=== PATIENT | female | born 1985 | race Caucasian/White ===

== ENCOUNTER 2022-09-03 13:30 | Inpatient (IN) | payer OTHER ==
[~2022-09-03] VITALS: Ht 165 cm; Wt 116.6 kg
[2022-09-03] MEDS ORDERED: MISOPROSTOL 100MCG TABLET VG PRN (14:30)
[2022-09-03] MEDS ORDERED: METHYLERGONOVINE MALEATE 0.2 MG/ML IM PRN (14:30)
[2022-09-03] MEDS ORDERED: CARBOPROST TROMETHAMINE 250 MCG/ML AMPUL IM PRN (14:30)
[2022-09-03] MEDS ORDERED: OXYTOCIN 30 UNITS/500ML NS PMX 500 ML IV SCH ×2 (14:30→22:15)
[2022-09-03] MEDS ORDERED: PHENYLEPHRINE HCL 10 MG/ML 1ML (IV VIAL) IV ONE (14:41)
[2022-09-03] MEDS ORDERED: OXYTOCIN 10 UNITS/ML 1ML ONE (14:41)
[2022-09-03] MEDS ORDERED: CEFAZOLIN SODIUM 1000MG/VIAL ONE ×2 (14:41→21:30)
[2022-09-03] MEDS ORDERED: MORPHINE SULFATE/PF 1MG/ML 10ML AMP ONE (14:41)
[2022-09-03] MEDS ORDERED: ONDANSETRON HCL 4MG/2ML INJ ONE (14:41)
[2022-09-03] MEDS ORDERED: EPHEDRINE SULFATE 50MG/ML VIAL ONE (14:41)
[2022-09-03] MEDS ORDERED: FENTANYL CITRATE/PF 50MCG/ML 2ML VIAL ONE (14:41)
[2022-09-03] MEDS ORDERED: DIPHENHYDRAMINE 50MG/ML VIAL ONE (14:41)
[2022-09-03] MEDS ORDERED: SODIUM CHLORIDE 0.9% 10ML VIAL ONE (14:43)
[2022-09-03] MEDS ORDERED: CITRIC ACID/SODIUM CITRATE SOLN 30ML UDC PO NR (14:45)
[2022-09-03 15:13] LABS: HEMATOCRIT. 38.2 % (36.0-48.0); HEMOGLOBIN. 12.7 g/dL (12.0-16.0); MEAN CORPUSCULAR HEMOGLOBIN 29.3 pg (28.0-32.0); MEAN CORPUSCULAR VOLUME 88.1 fL (81.0-99.0); MEAN PLATELET VOLUME 9.1 fl (7.4-10.4); PLATELET 201 x1000/uL (130-400); RED BLOOD CELL COUNT 4.34 mill/uL (4.2-5.4); RED CELL DISTRIBUTION WIDTH 14.7 % (11.6-14.6)
[2022-09-03 15:14] LABS: CLARITY URINE CLEAR (CLEAR); COLOR URINE YELLOW (YELLOW); KETONES URINE 1+ (NEGATIVE); LEUKOCYTE ESTERASE URINE NEGATIVE (NEGATIVE); NITRITE URINE NEGATIVE (NEGATIVE); OCCULT BLOOD URINE NEGATIVE (NEGATIVE); PROTEIN URINE NEGATIVE (NEGATIVE); SPECIFIC GRAVITY URINE 1.012 (1.005-1.030); UROBILINOGEN URINE 0.2 E.U./dL (0.2-1.0)
[2022-09-03 15:26] LABS: *AMPHETAMINES SCREEN URINE NEGATIVE (NEGATIVE); *BARBITURATES SCREEN URINE NEGATIVE (NEGATIVE); *BENZODIAZEPINES SCREEN URINE NEGATIVE (NEGATIVE); *COCAINE SCREEN URINE NEGATIVE (NEGATIVE); CANNABINOID URINE SCREEN NEGATIVE (NEGATIVE); METHADONE URINE SCREEN NEGATIVE (NEGATIVE); OPIATES URINE SCREEN NEGATIVE (NEGATIVE); PHENCYCLIDINE URINE SCREEN NEGATIVE (NEGATIVE)
[2022-09-03 15:54] LABS: INR 0.9; PARTIAL THROMBOPLASTIN TIME 28.2 sec (23.4-31.0); PROTHROMBIN TIME 9.7 sec (9.6-11.0)
[2022-09-03 15:56] LABS: PLATELET ESTIMATE NORMAL
[2022-09-03] MEDS: LACTATED RINGERS 1,000 ML IV SCH ×3 (17:27→20:31)
[2022-09-03] MEDS ORDERED: LACTATED RINGERS 1,000 ML IV SCH (20:45)
[2022-09-03] MEDS ORDERED: METOCLOPRAMIDE HCL 10MG/2ML VIAL ONE (21:15)
[2022-09-03] MEDS ORDERED: KETOROLAC 60MG/2ML VIAL IM ONE (21:29)
[2022-09-03] MEDS ORDERED: LANOLIN OINT 7GM TUBE TOP PRN (22:15)
[2022-09-03] MEDS ORDERED: BISACODYL 10MG SUPP PR PRN (22:15)
[2022-09-03] MEDS ORDERED: ONDANSETRON HCL 4MG/2ML INJ IV PRN (22:15)
[2022-09-03] MEDS ORDERED: ACETAMINOPHEN WITH CODEINE 300/30MG TABLET PO PRN (22:15)
[2022-09-03] MEDS ORDERED: DIPHENHYDRAMINE 50MG/ML VIAL IV PRN (22:15)
[2022-09-03] MEDS ORDERED: RHO(D) IMMUNE GLOBULIN 300 MCG/SYR IM PRN (22:15)
[2022-09-03] MEDS ORDERED: BUTORPHANOL TARTRATE 2 MG/ML VIAL IV PRN (22:15)
[2022-09-03] MEDS ORDERED: DIPHENHYDRAMINE 25MG CAPSULE PO PRN (22:15)
[2022-09-03] MEDS ORDERED: KETOROLAC 30MG/ML VIAL IV SCH (22:15)
[2022-09-03] MEDS ORDERED: IBUPROFEN 400MG TABLET PO PRN (22:15)
[2022-09-03] MEDS ORDERED: NALOXONE HCL 0.4 MG/ML 1ML VIAL IV PRN (22:15)
[2022-09-03] MEDS ORDERED: HEMORRHOIDAL SUPP PR PRN (22:15)
[2022-09-03 23:45] VITALS: BP 94/54
[2022-09-04 00:15] VITALS: BP 110/60
[2022-09-04 00:45] VITALS: BP 115/65
[2022-09-04] MEDS: LACTATED RINGERS 1,000 ML IV SCH (02:12)
[2022-09-04 06:00] VITALS: BP 104/64
[2022-09-04 06:41] LABS: BASOPHILS % 0.4 % (0.0-2.0); EOSINOPHILS % 0.9 % (0.0-5.0); HEMATOCRIT. 32.8 % (36.0-48.0); HEMOGLOBIN. 10.9 g/dL (12.0-16.0); LYMPHOCYTES % 15.2 % (20.0-50.0); MEAN CORPUSCULAR HEMOGLOBIN 29.5 pg (28.0-32.0); MEAN CORPUSCULAR VOLUME 88.7 fL (81.0-99.0); MEAN PLATELET VOLUME 8.5 fl (7.4-10.4); MONOCYTES % 5.8 % (2.0-8.0); NEUTROPHILS % 77.7 % (40.0-76.0); PLATELET 172 x1000/uL (130-400)
[2022-09-04 10:00] VITALS: BP 106/67
[2022-09-04] MEDS: PRENATAL VIT/FE FUMARATE/FA TABLET PO SCH (10:01)
[2022-09-04] MEDS: IBUPROFEN 800MG TABLET PO PRN (10:01)
[2022-09-04] MEDS: FERROUS SULFATE 325MG TABLET PO SCH ×2 (10:02→16:18)
[2022-09-04] MEDS: SIMETHICONE 80MG TABLET CHEW PO SCH ×3 (10:03→21:25)
[2022-09-04 15:30] VITALS: BP 92/55
[2022-09-04] MEDS: HYDROCORTISONE 1% CREAM 30GM TOP SCH (15:31)
[2022-09-04] MEDS: MAGNESIUM/ALUMINUM HYDROXIDE/SIMETHICONE 30ML UDC PO SCH ×2 (16:18→21:24)
[2022-09-04 20:00] VITALS: BP 117/82
[2022-09-04 20:02] LABS: HEPATITIS B SURFACE ANTIGEN NEGATIVE
[2022-09-04] MEDS: DOCUSATE SODIUM 100MG CAPSULE PO SCH (21:24)
[2022-09-05 04:00] VITALS: BP 108/78
[2022-09-05] MEDS: IBUPROFEN 800MG TABLET PO PRN (05:11)
[2022-09-05] MEDS: HYDROCORTISONE 1% CREAM 30GM TOP SCH ×3 (05:11→21:56)
[2022-09-05 08:00] VITALS: BP 105/70
[2022-09-05 08:13] LABS: HIV SCREEN 4G Non Reactive (Non Reactive)
[2022-09-05] MEDS: SIMETHICONE 80MG TABLET CHEW PO SCH ×3 (08:41→20:37)
[2022-09-05] MEDS: FERROUS SULFATE 325MG TABLET PO SCH ×2 (08:41→13:17)
[2022-09-05] MEDS: PRENATAL VIT/FE FUMARATE/FA TABLET PO SCH (08:41)
[2022-09-05] MEDS: MAGNESIUM/ALUMINUM HYDROXIDE/SIMETHICONE 30ML UDC PO SCH ×3 (08:41→20:38)
[2022-09-05] MEDS: PREDNISONE 20MG TABLET PO SCH (13:17)
[2022-09-05 16:00] VITALS: BP 110/74
[2022-09-05 20:00] VITALS: BP 113/70
[2022-09-05] MEDS: DOCUSATE SODIUM 100MG CAPSULE PO SCH (20:37)
[2022-09-06 03:15] VITALS: BP 122/72
[2022-09-06] MEDS: HYDROCORTISONE 1% CREAM 30GM TOP SCH (05:32)
[2022-09-06] MEDS: MAGNESIUM/ALUMINUM HYDROXIDE/SIMETHICONE 30ML UDC PO SCH (07:30)
[2022-09-06 07:45] VITALS: BP 122/71
[2022-09-06] MEDS: SIMETHICONE 80MG TABLET CHEW PO SCH (08:00)
[2022-09-06] MEDS: PREDNISONE 20MG TABLET PO SCH (08:23)
[2022-09-06] MEDS: PRENATAL VIT/FE FUMARATE/FA TABLET PO SCH (08:23)
[2022-09-06] MEDS: FERROUS SULFATE 325MG TABLET PO SCH (08:24)
[2022-09-06 12:00] VITALS: BP 120/75
== END 2022-09-06 12:50 | disposition home or self-care (01) | DRG 539 ==
LOC: 8 EST LDRP 13:30 → OBSVTOIN 14:00 → 8EST 23:43
PROVIDERS: ADMIT Obstetrics & Gynecology; ATTEND Obstetrics & Gynecology
PROC: 10D00Z1 Extraction of Products of Conception, Low, Open Approach (ICD-10-PCS; principal; 2022-09-03)
PROC: 0UB70ZZ Excision of Bilateral Fallopian Tubes, Open Approach (ICD-10-PCS; 2022-09-03)
DX: O41.03X0 Oligohydramnios, third trimester, not applicable or unspecified (principal); D62 Acute posthemorrhagic anemia; O34.211 Maternal care for low transverse scar from previous cesarean delivery; Z20.822 Contact with and (suspected) exposure to COVID-19; O26.893 Other specified pregnancy related conditions, third trimester; L29.9 Pruritus, unspecified; Z37.0 Single live birth; Z3A.38 38 weeks gestation of pregnancy; Z30.2 Encounter for sterilization
CPT/HCPCS: 36415; 80305; 81003; 85025; 86592; 86762; 86850; 86870; 86886; 86900; 87340; 87389; 87426; 88302; 88307; 90384; 99281; G0378; J0690; J1200; J1885; J2274; J2370; J2405; J2765; J3010; J3490; J7120; J7512; Q0163; A4315; J2590; J2791